=== PATIENT | male | born 1965 | race Caucasian/White ===

== ENCOUNTER → 2019-06-14 | Outpatient (CLI) | payer BC ==
--- NOTE | 2019-06-14 09:19 | Diagnostic Imaging Report ---
EXAMINATION: CHEST 2 VIEWS INDICATION: Cough COMPARISON: None FINDINGS: LINES/TUBES:None LUNGS:The lungs are well-inflated. Mild opacities at the right lower lung zone. PLEURA:No pleural effusion or pneumothorax. MEDIASTINUM:The cardiomediastinal silhouette appears normal in size and shape. BONES/SOFT TISSUES:No acute osseous injury. Mild degenerative changes of the visualized spine. ABDOMEN:No free air under the diaphragm. IMPRESSION: Mild opacity at the right lower lung zone, possibly representing early aspiration and/or pneumonia in the proper clinical setting. RECOMMENDATIONS: Chest radiograph in 6-8 weeks to assess for resolution. Signed by: Vilma Keller MD on 06/14/2019 9:16 AM
== END ==
LOC: RAD 07:51
PROVIDERS: ATTEND Internal Medicine
DX: R05 Cough (principal)
CPT/HCPCS: 71046

== ENCOUNTER 2022-05-23 13:09 | Emergency (ER) | payer BC, OTHER ==
[~2022-05-23] VITALS: Ht 175.3 cm; Wt 89.6 kg
[2022-05-23] MEDS ORDERED: LOSARTAN POTAS100 MG PO (15:59)
[2022-05-23] MEDS ORDERED: NAPROSYN500 MG PO (16:33)
== END 2022-05-23 16:47 | disposition home or self-care (01) ==
LOC: EEVIPCON 13:12 → FSED 13:12
DX: S92.511A Displaced fracture of proximal phalanx of right lesser toe(s), initial encounter for closed fracture (principal); W22.03XA Walked into furniture, initial encounter; Y93.01 Activity, walking, marching and hiking; Y92.89 Other specified places as the place of occurrence of the external cause; I10 Essential (primary) hypertension; F17.210 Nicotine dependence, cigarettes, uncomplicated
CPT/HCPCS: 99284